=== PATIENT | female | born 1955 | race Caucasian/White ===

== ENCOUNTER → 2016-12-07 | Outpatient (REF) | payer MEDICARE, OTHER ==
[2016-12-07 16:15] LABS: ALBUMIN 4.1 GM/DL (3.2-5.2); ALBUMIN/GLOBULIN RATIO 1.32 (1.00-1.93); ALKALINE PHOSPHATASE 60 U/L (45-117); ALT/SGPT 29 U/L (12-78); ANION GAP 10 MEQ/L (8-16); AST/SGOT 14 U/L (15-37); BILIRUBIN,TOTAL 0.3 MG/DL (0.2-1.0); BLOOD UREA NITROGEN 15 MG/DL (7-18); CALCIUM LEVEL 10.2 MG/DL (8.8-10.2); CARBON DIOXIDE LEVEL 28 MEQ/L (21-32); CHLORIDE LEVEL 105 MEQ/L (98-107); CREATININE FOR GFR 0.76 MG/DL (0.55-1.02); GLOMERULAR FILTRATION RATE > 60.0 (>45); GLUCOSE, FASTING 93 MG/DL (80-110); POTASSIUM SERUM 4.1 MEQ/L (3.5-5.1); SODIUM LEVEL 143 MEQ/L (136-145); TOTAL PROTEIN 7.2 GM/DL (6.4-8.2)
== END ==
LOC: M SFHCPLAZ 13:52
PROVIDERS: ATTEND Nurse Practitioner Family
DX: E11.9 Type 2 diabetes mellitus without complications (principal); E78.4 Other hyperlipidemia; E55.9 Vitamin D deficiency, unspecified
CPT/HCPCS: 36415; 80053; 82306; 83036; G0463

== ENCOUNTER → 2017-06-03 | Outpatient (REF) | payer MEDICARE, OTHER ==
[2017-06-03 14:18] LABS: ALBUMIN/GLOBULIN RATIO 1.33 (1.00-1.93); ALKALINE PHOSPHATASE 59 U/L (45-117); ALT/SGPT 28 U/L (12-78); ANION GAP 8 MEQ/L (8-16); AST/SGOT 15 U/L (15-37); BILIRUBIN,TOTAL 0.3 MG/DL (0.2-1.0); BLOOD UREA NITROGEN 16 MG/DL (7-18); CALCIUM LEVEL 9.8 MG/DL (8.8-10.2); CARBON DIOXIDE LEVEL 25 MEQ/L (21-32); CHLORIDE LEVEL 105 MEQ/L (98-107); CHOLESTEROL LEVEL 142 MG/DL (<200); CREATININE FOR GFR 0.81 MG/DL (0.55-1.02); GLOMERULAR FILTRATION RATE > 60.0 (>45); GLUCOSE, FASTING 164 MG/DL (80-110); POTASSIUM SERUM 4.1 MEQ/L (3.5-5.1); SODIUM LEVEL 138 MEQ/L (136-145); TRIGLYCERIDES LEVEL 176 MG/DL (<150)
== END ==
LOC: M SFHCPLAZ 11:25
PROVIDERS: ATTEND Nurse Practitioner Family
DX: E78.4 Other hyperlipidemia (principal); I10 Essential (primary) hypertension; E11.9 Type 2 diabetes mellitus without complications; E55.9 Vitamin D deficiency, unspecified

== ENCOUNTER → 2017-06-07 | Outpatient (REF) | payer MEDICARE, OTHER | LOC: M SFHCPLAZ 14:09 | PROVIDERS: ATTEND Nurse Practitioner Family | DX: E11.9 Type 2 diabetes mellitus without complications (principal) | CPT/HCPCS: 83036; G0463 ==

== ENCOUNTER → 2017-09-09 | Outpatient (REF) | payer MEDICARE, OTHER | LOC: M SFHCPLAZ 14:21 | PROVIDERS: ATTEND Nurse Practitioner Family | DX: I10 Essential (primary) hypertension (principal); E11.9 Type 2 diabetes mellitus without complications; E55.9 Vitamin D deficiency, unspecified; K43.9 Ventral hernia without obstruction or gangrene; Z53.8 Procedure and treatment not carried out for other reasons ==

== ENCOUNTER → 2018-03-26 | Outpatient (CLI) | payer MEDICARE, OTHER | LOC: M WHC 13:20 | DX: Z12.31 Encounter for screening mammogram for malignant neoplasm of breast (principal); Z92.89 Personal history of other medical treatment | CPT/HCPCS: 77067 ==

== ENCOUNTER → 2018-04-30 | Outpatient (REF) | payer MEDICARE, OTHER ==
[2018-04-30 20:13] LABS: ALBUMIN/GLOBULIN RATIO 1.14 (1.00-1.93); ALKALINE PHOSPHATASE 61 U/L (45-117); ALT/SGPT 35 U/L (12-78); ANION GAP 9 MEQ/L (8-16); AST/SGOT 13 U/L (7-37); BILIRUBIN,TOTAL 0.3 MG/DL (0.2-1.0); BLOOD UREA NITROGEN 12 MG/DL (7-18); CALCIUM LEVEL 9.6 MG/DL (8.8-10.2); CARBON DIOXIDE LEVEL 28 MEQ/L (21-32); CHLORIDE LEVEL 105 MEQ/L (98-107); CREATININE FOR GFR 0.78 MG/DL (0.55-1.30); FERRITIN 160 NG/ML (8-252); GLOMERULAR FILTRATION RATE > 60.0 (>45); GLUCOSE, FASTING 121 MG/DL (70-100); IRON (FE) 60 UG/DL (50-170); MAGNESIUM LEVEL 1.9 MG/DL (1.8-2.4); SODIUM LEVEL 142 MEQ/L (136-145); TOTAL PROTEIN 7.5 GM/DL (6.4-8.2)
[2018-04-30 20:18] LABS: BASO % 0.6 % (0.0-1.0); EOS # 0.4 10^3/uL (0.0-0.50); EOS % 6.2 % (0.0-3.0); HEMATOCRIT 36.5 % (36.0-47.0); HEMOGLOBIN 11.9 g/dl (12.0-15.5); IMMATURE GRANULOCYTE % 0.2 % (0-3.0); LYMPH # 2.1 10^3/uL (1.5-4.5); LYMPH % 33.5 % (24.0-44.0); MEAN CORPUSCULAR HEMOGLOBIN 30.3 pg (27.0-33.0); MEAN CORPUSCULAR HGB CONC 32.6 g/dl (32.0-36.5); MEAN CORPUSCULAR VOLUME 92.9 fl (80.0-96.0); MONO # 0.5 10^3/uL (0.0-0.8); MONO % 8.4 % (0.0-5.0); NEUTROPHILS # 3.2 10^3/uL (1.8-7.7); NEUTROPHILS % 51.1 % (36.0-66.0); PLATELET COUNT, AUTOMATED 238 10^3/uL (150-450); RED BLOOD COUNT 3.93 10^6/uL (4.00-5.40); RED CELL DISTRIBUTION WIDTH 12.6 % (11.5-14.5); WHITE BLOOD COUNT 6.3 10^3/uL (4.0-10.0)
[2018-04-30 21:00] LABS: ESTIMATED AVERAGE GLUCOSE 171 MG/DL (60-110); HEMOGLOBIN A1c 7.6 %
== END ==
LOC: M LAB REF 17:59
DX: R25.2 Cramp and spasm (principal); E11.9 Type 2 diabetes mellitus without complications
CPT/HCPCS: 83540

== ENCOUNTER 2018-11-23 14:39 | Emergency (ER) | payer MEDICARE, OTHER ==
[~2018-11-23] VITALS: Ht 162.6 cm; Wt 86.8 kg
[~2018-11-23 14:39] MED LIST: ANTI2CAP PO; ASPI1TAB PO; FISH1000 PO; GABA-1171 PO; LISI10TA4 PO; METF10004 PO; MULT1TAB10 PO; OXYB5TAB10 PO; SIMV10TA2 PO; TYLE1TAB5 PO; VITA100067 PO; VITA500T PO; VITA500T3 PO; iron PO
[2018-11-23 14:40] VITALS: BP 130/63
[2018-11-23] MEDS ORDERED: GLYB125TA PO (14:47)
[2018-11-23] MEDS ORDERED: ATOR40TA75 PO (14:47)
[2018-11-23] MEDS ORDERED: ULTR50TA8 PO (15:23)
[2018-11-23] MEDS ORDERED: traMADol 50 MG TAB PO ONE (15:30)
[2018-11-23] MEDS ORDERED: ACETAMINOPHEN TAB 650MG DOSE (2X325MG) PO ONE (15:30)
--- NOTE | 2018-11-23 15:30 | REP ---
Left knee five views History: Pain Postoperative change is present. Two metal screws are present in the proximal tibia. There is no acute fracture or dislocation. There is minimal narrowing of the joint spaces. Osteophytes are present on the tibia and patella. IMPRESSION: Degenerative change, as described above. Electronically Signed by Eulalio Jones MD 11/23/2018 03:35 P
== END 2018-11-23 15:44 | disposition home or self-care (01) ==
LOC: M ED 14:39
DX: M17.12 Unilateral primary osteoarthritis, left knee (principal); I10 Essential (primary) hypertension; E11.9 Type 2 diabetes mellitus without complications; I69.354 Hemiplegia and hemiparesis following cerebral infarction affecting left non-dominant side; Z79.899 Other long term (current) drug therapy; Z79.82 Long term (current) use of aspirin

== ENCOUNTER → 2019-03-13 | Outpatient (REF) | payer MEDICARE, OTHER ==
[~2019-03-13] MED LIST changes: -ASPI1TAB PO; +ASPI81TA26 PO; +ATOR40TA75 PO; +GLYB125TA PO; +ULTR50TA8 PO
[2019-03-13 14:45] LABS: CREATININE, URINE 93.4 MG/DL; MAU/CREAT RATIO 10.7 MCG/MG (0.0-30.0)
[2019-03-13 14:49] LABS: ALT/SGPT 40 U/L (12-78); BILIRUBIN,TOTAL 0.4 MG/DL (0.2-1.0); BLOOD UREA NITROGEN 14 MG/DL (7-18); CARBON DIOXIDE LEVEL 24 MEQ/L (21-32); CHLORIDE LEVEL 104 MEQ/L (98-107); CHOLESTEROL LEVEL 150 MG/DL (<200); CHOLESTEROL RISK RATIO 3.488 (<5); CREATININE FOR GFR 0.86 MG/DL (0.55-1.30); GLOMERULAR FILTRATION RATE > 60.0 (>45); GLUCOSE, FASTING 134 MG/DL (70-100); HDL CHOLESTEROL 43 MG/DL (>40); LDL CHOLESTEROL 69 MG/DL (<100); NON-HDL-C 107 MG/DL; POTASSIUM SERUM 4.2 MEQ/L (3.5-5.1); SODIUM LEVEL 138 MEQ/L (136-145); TOTAL PROTEIN 7.5 GM/DL (6.4-8.2); TRIGLYCERIDES LEVEL 188 MG/DL (<150)
[2019-03-13 15:01] LABS: HEMOGLOBIN A1c 7.2 %
== END ==
LOC: M LAB REF 12:48
PROVIDERS: ATTEND Family Medicine Addiction Medicine
DX: E11.9 Type 2 diabetes mellitus without complications (principal)

== ENCOUNTER → 2022-09-04 | Outpatient (REF) | payer MEDICARE, OTHER ==
[~2022-09-04] MED LIST changes: +CYAN500T14 PO; +LISI10TA22 PO; -LISI10TA4 PO; -SIMV10TA2 PO; +SIMV10TA21 PO; +VITA-243 PO; -VITA500T PO; -VITA500T3 PO
[2022-09-04 19:44] LABS: MAU/CREAT RATIO 1348.4 MCG/MG (0.0-30.0)
== END ==
LOC: M LAB REF 16:32
PROVIDERS: ATTEND Nurse Practitioner Family
DX: E11.65 Type 2 diabetes mellitus with hyperglycemia (principal)

== ENCOUNTER → 2022-09-21 | Outpatient (REF) | payer MEDICARE, OTHER ==
[2022-09-21 19:18] LABS: APPEARANCE, URINE MANUAL CLEAR (CLEAR); COLOR, URINE MANUAL YELLOW (YELLOW)
[2022-09-21 19:19] LABS: SPECIFIC GRAVITY,URINE MANUAL 1.025 (1.002-1.035)
[2022-09-21 19:20] LABS: BILIRUBIN, URINE MANUAL NEGATIVE (NEGATIVE); BLOOD URINE MANUAL TRACE (NEGATIVE); GLUCOSE, URINE (UA) MANUAL 4+(1000 MG/DL) mg/dL (NEGATIVE); KETONE, URINE MANUAL NEGATIVE (NEGATIVE); LEUKOCYTE ESTERASE, URINE MAN NEGATIVE (NEGATIVE); NITRITE, URINE MANUAL NEGATIVE (NEGATIVE); PROTEIN, URINE MANUAL 1+ mg/dL (NEGATIVE); UROBILINOGEN, URINE MANUAL NORMAL (NORMAL)
[2022-09-21 20:13] LABS: BACTERIA, URINE SMALL AMOUNT; HYALINE CAST, URINE NONE SEEN /lpf (0-1); MUCUS, URINE MOD AMOUNT (NEGATIVE); RBC, URINE 0-1 /hpf (0-3); SQUAMOUS EPITHELIAL CELL URINE MOD AMOUNT /hpf (SMALL AMT); WBC, URINE 0-1 /hpf (0-3); YEAST, URINE SMALL AMOUNT
== END ==
LOC: M SMT 17:34
PROVIDERS: ATTEND Physician Assistant
DX: N39.45 Continuous leakage (principal)

== ENCOUNTER → 2022-10-02 | Outpatient (REF) | payer MEDICARE, OTHER ==
[2022-10-02 18:20] LABS: BASO % 0.5 % (0.0-1.0); EOS # 0.1 10^3/uL (0.0-0.5); EOS % 1.6 % (0.0-3.0); HEMATOCRIT 40.4 % (36.0-47.0); HEMOGLOBIN 13.1 g/dl (12.0-15.5); LYMPH # 2.1 10^3/uL (1.5-5.0); LYMPH % 36.6 % (24.0-44.0); MEAN CORPUSCULAR HEMOGLOBIN 30.3 pg (27.0-33.0); MEAN CORPUSCULAR HGB CONC 32.4 g/dl (32.0-36.5); MEAN CORPUSCULAR VOLUME 93.3 fl (80.0-96.0); MONO # 0.5 10^3/uL (0.0-0.8); NEUTROPHILS # 2.9 10^3/uL (1.5-8.5); NEUTROPHILS % 51.9 % (36.0-66.0); PLATELET COUNT, AUTOMATED 209 10^3/uL (150-450); RED BLOOD COUNT 4.33 10^6/uL (4.00-5.40); WHITE BLOOD COUNT 5.7 10^3/uL (4.0-10.0)
[2022-10-02 18:56] LABS: HEMOGLOBIN A1c 10.6 % (4.0-6.0)
[2022-10-02 20:19] LABS: ALBUMIN 3.8 G/DL (3.2-5.2); ALT/SGPT 21 U/L (7.0-40); BILIRUBIN,TOTAL 0.3 MG/DL (0.3-1.2); BLOOD UREA NITROGEN 12 MG/DL (9-23); CALCIUM LEVEL 9.2 MG/DL (8.3-10.6); CARBON DIOXIDE LEVEL 26 MMOL/L (20-31); CHLORIDE LEVEL 100 MMOL/L (98-107); CHOLESTEROL LEVEL 274 MG/DL (<200); CHOLESTEROL RISK RATIO 5.81 (<5); CREATININE FOR GFR 0.65 MG/DL (0.55-1.30); FREE T4 1.17 NG/DL (0.89-1.76); GLOMERULAR FILTRATION RATE > 60.0 (>45); GLUCOSE, FASTING 239 MG/DL (74-106); HDL CHOLESTEROL 47.1 MG/DL (>40); LDL CHOLESTEROL 160.5 MG/DL (<100); NON-HDL-C 227 MG/DL; POTASSIUM SERUM 3.9 MMOL/L (3.5-5.1); SODIUM LEVEL 137 MMOL/L (136-145); THYROID STIMULATING HORMONE 3.025 uIU/ML (0.55-4.78); TOTAL PROTEIN 6.7 G/DL; TRIGLYCERIDES LEVEL 332 MG/DL (<150)
== END ==
LOC: M LAB REF 17:29
PROVIDERS: ATTEND Nurse Practitioner Family
DX: Z13.228 Encounter for screening for other metabolic disorders (principal)

== ENCOUNTER → 2023-02-06 | Outpatient (REF) | payer OTHER ==
[2023-02-06 17:20] LABS: HEMOGLOBIN A1c 9.2 % (4.0-6.0)
[2023-02-06 17:44] LABS: CHOLESTEROL RISK RATIO 4.7 (<5); HDL CHOLESTEROL 42.3 MG/DL (>40); LDL CHOLESTEROL 107.5 MG/DL (<100); NON-HDL-C 156.7 MG/DL
== END ==
LOC: M LAB REF 16:23
PROVIDERS: ATTEND Nurse Practitioner Family
DX: E11.65 Type 2 diabetes mellitus with hyperglycemia (principal); E78.5 Hyperlipidemia, unspecified

== ENCOUNTER → 2023-02-12 | Outpatient (REF) | payer OTHER ==
[2023-02-12 17:34] LABS: ALBUMIN 3.7 G/DL (3.2-5.2); ALKALINE PHOSPHATASE 81 U/L (46-116); ALT/SGPT 21 U/L (7.0-40); AST/SGOT 18 U/L (<34); BILIRUBIN,TOTAL 0.3 MG/DL (0.3-1.2); BLOOD UREA NITROGEN 9 MG/DL (9-23); CALCIUM LEVEL 9.8 MG/DL (8.3-10.6); CARBON DIOXIDE LEVEL 27 MMOL/L (20-31); CHLORIDE LEVEL 102 MMOL/L (98-107); CREATININE FOR GFR 0.64 MG/DL (0.55-1.30); GLOMERULAR FILTRATION RATE > 60.0 (>45); GLUCOSE, FASTING 259 MG/DL (74-106); MAGNESIUM LEVEL 1.6 MG/DL (1.8-2.4); POTASSIUM SERUM 4.3 MMOL/L (3.5-5.1); SODIUM LEVEL 137 MMOL/L (136-145); TOTAL PROTEIN 7.1 G/DL (5.7-8.2)
== END ==
LOC: M LAB REF 16:25
PROVIDERS: ATTEND Nurse Practitioner Family
DX: R25.2 Cramp and spasm (principal)

== ENCOUNTER → 2023-05-28 | Outpatient (REF) | payer OTHER ==
[2023-05-28 18:03] LABS: HEMOGLOBIN A1c 10.5 % (4.0-6.0)
[2023-05-28 18:11] LABS: ALBUMIN 3.7 G/DL (3.2-5.2); ALKALINE PHOSPHATASE 94 U/L (46-116); ALT/SGPT 27 U/L (7.0-40); AST/SGOT 19 U/L (<34); BILIRUBIN,TOTAL 0.4 MG/DL (0.3-1.2); BLOOD UREA NITROGEN 11 MG/DL (9-23); CALCIUM LEVEL 10.4 MG/DL (8.3-10.6); CARBON DIOXIDE LEVEL 24 MMOL/L (20-31); CHLORIDE LEVEL 103 MMOL/L (98-107); CREATININE FOR GFR 0.59 MG/DL (0.55-1.30); GLOMERULAR FILTRATION RATE > 60.0 (>45); GLUCOSE, FASTING 391 MG/DL (74-106); POTASSIUM SERUM 4.1 MMOL/L (3.5-5.1); SODIUM LEVEL 135 MMOL/L (136-145); TOTAL PROTEIN 7.1 G/DL (5.7-8.2)
== END ==
LOC: M LAB REF 16:13
PROVIDERS: ATTEND Nurse Practitioner Family
DX: E11.65 Type 2 diabetes mellitus with hyperglycemia (principal)

== ENCOUNTER → 2023-09-18 | Outpatient (REF) | payer OTHER ==
[~2023-09-18] MED LIST changes: -OXYB5TAB10 PO; +OXYB5TAB11 PO
[2023-09-19 13:42] LABS: CREATININE, URINE 53.8 MG/DL
[2023-09-19 13:57] LABS: MAU/CREAT RATIO 1245.3 MCG/MG (0.0-30.0)
== END ==
LOC: M LAB REF 12:33
PROVIDERS: ATTEND Nurse Practitioner Family
DX: E11.9 Type 2 diabetes mellitus without complications (principal)

== ENCOUNTER → 2023-09-27 | Outpatient (REF) | payer OTHER ==
[2023-09-27 16:53] LABS: BASO % 0.4 % (0.0-1.0); EOS # 0.1 10^3/uL (0.0-0.5); EOS % 1.4 % (0.0-3.0); HEMOGLOBIN 12.6 g/dl (12.0-15.5); LYMPH # 1.9 10^3/uL (1.5-5.0); LYMPH % 38.9 % (24.0-44.0); MEAN CORPUSCULAR HGB CONC 33.2 g/dl (32.0-36.5); MEAN CORPUSCULAR VOLUME 90.5 fl (80.0-96.0); MONO # 0.4 10^3/uL (0.0-0.8); MONO % 7.9 % (2.0-8.0); NEUTROPHILS # 2.5 10^3/uL (1.5-8.5); PLATELET COUNT, AUTOMATED 186 10^3/uL (150-450); WHITE BLOOD COUNT 4.9 10^3/uL (4.0-10.0)
[2023-09-27 17:06] LABS: THYROID STIMULATING HORMONE 2.296 uIU/ML (0.55-4.78); TOTAL 25(OH) VITAMIN D 14.9 NG/ML (20.0-100.0)
[2023-09-27 17:10] LABS: ALBUMIN 3.5 G/DL (3.2-5.2); ALKALINE PHOSPHATASE 92 U/L (46-116); ALT/SGPT 23 U/L (7.0-40); AST/SGOT 13 U/L (<34); BILIRUBIN,TOTAL 0.3 MG/DL (0.3-1.2); BLOOD UREA NITROGEN 13 MG/DL (9-23); CALCIUM LEVEL 9.8 MG/DL (8.3-10.6); CARBON DIOXIDE LEVEL 28 MMOL/L (20-31); CHLORIDE LEVEL 100 MMOL/L (98-107); CHOLESTEROL LEVEL 197 MG/DL (<200); CHOLESTEROL RISK RATIO 4.32 (<5); CREATININE FOR GFR 0.65 MG/DL (0.55-1.30); GLOMERULAR FILTRATION RATE > 60.0 (>45); GLUCOSE, FASTING 512 MG/DL (74-106); HDL CHOLESTEROL 45.5 MG/DL (>40); LDL CHOLESTEROL 89.9 MG/DL (<100); NON-HDL-C 151.5 MG/DL; SODIUM LEVEL 136 MMOL/L (136-145); TOTAL PROTEIN 6.7 G/DL (5.7-8.2); TRIGLYCERIDES LEVEL 308 MG/DL (<150)
[2023-09-27 17:33] LABS: MAU/CREAT RATIO 593.5 MCG/MG (0.0-30.0)
[2023-09-27 19:27] LABS: HEMOGLOBIN A1c 13.3 % (4.0-6.0)
== END ==
LOC: M LAB REF 16:10
PROVIDERS: ATTEND Nurse Practitioner Family
DX: Z13.228 Encounter for screening for other metabolic disorders (principal)

== ENCOUNTER → 2024-01-29 | Outpatient (REF) | payer OTHER ==
[~2024-01-29] MED LIST changes: -OXYB5TAB11 PO; +OXYB5TAB14 PO
[2024-01-29 17:39] LABS: APPEARANCE, URINE CLEAR (CLEAR); BACTERIA, URINE AUTO NEGATIVE (NEGATIVE); BILIRUBIN, URINE AUTO NEGATIVE (NEGATIVE); BLOOD, URINE BLOOD NEGATIVE (NEGATIVE); COLOR, URINE STRAW (YELLOW); GLUCOSE, URINE (UA) AUTO 3+ mg/dL (NEGATIVE); KETONE, URINE AUTO NEGATIVE (NEGATIVE); LEUKOCYTE ESTERASE, URINE AUTO NEGATIVE (NEGATIVE); NITRITE, URINE AUTO NEGATIVE (NEGATIVE); PROTEIN, URINE AUTO 2+ mg/dL (NEGATIVE); RBC, URINE AUTO 1 /HPF (0-3); SPECIFIC GRAVITY URINE AUTO 1.031 (1.002-1.035); SQUAMOUS EPITHELIAL CELL UR AU 0 /HPF (0-6); UROBILINOGEN, URINE AUTO 0.2 mg/dL (0.0-2.0); WBC, URINE AUTO 0 /HPF (0-3)
== END ==
LOC: M SMT 17:18
PROVIDERS: ATTEND Urology
DX: R32 Unspecified urinary incontinence (principal)

== ENCOUNTER → 2024-02-04 | Outpatient (REF) | payer OTHER ==
[2024-02-04 18:20] LABS: TOTAL PROTEIN,RANDOM URINE 104.7 MG/DL (0.0-14.0)
[2024-02-04 18:25] LABS: CREATININE,RANDOM URINE 51.2 MG/DL
== END ==
LOC: M LAB REF 17:09
PROVIDERS: ATTEND Internal Medicine Nephrology
DX: E11.22 Type 2 diabetes mellitus with diabetic chronic kidney disease (principal)

== ENCOUNTER 2024-05-26 02:08 | Emergency (ER) | payer OTHER ==
[~2024-05-26] VITALS: Ht 162.6 cm; Wt 87.7 kg
[2024-05-26] MEDS: GLUCAGON INJ 1MG VIAL IV STA ×2 (03:39→04:53)
[2024-05-26] MEDS: NITROGLYCERIN 0.4MG SUBL TABLET SL STA (03:41)
[2024-05-26] MEDS ORDERED: ATOR80TA59 PO (08:56)
[2024-05-26] MEDS ORDERED: METF-839 PO (09:05)
[2024-05-26] MEDS ORDERED: LOSA100T46 PO (09:05)
[2024-05-26] MEDS ORDERED: MYRB50TA PO (09:05)
[2024-05-26] MEDS ORDERED: HOME MED LIST COMPLETE! XX SCH (09:10)
[2024-05-26] MEDS ORDERED: propofoL 200 MG/20 ML VIAL As Ordered ONE (12:00)
[2024-05-26] MEDS ORDERED: LIDOCAINE 2% INJ 100 MG/5 ML SYRINGE As Ordered ONE (12:00)
[2024-05-26] MEDS ORDERED: SUCCINYLCHOLINE 100MG/5ML SYRINGE As Ordered ONE (12:00)
[2024-05-26] MEDS ORDERED: ONDANSETRON 4MG 2ML VIAL As Ordered ONE (12:35)
[2024-05-26] MEDS ORDERED: PHENYLephrine 500MCG 5ML (100MCG/ML) SYRINGE As Ordered ONE (12:49)
[2024-05-26] MEDS: GLUCAGON INJ 1MG VIAL As Ordered ONE (14:06)
[2024-05-26] MEDS: PANTOPRAZOLE 40MG VIAL IV ONE (15:30)
[2024-05-26] MEDS: LABETALOL 100MG/20ML VIAL IV PRN (15:40)
[2024-05-26 15:55] VITALS: BP 180/89
[2024-05-26] MEDS ORDERED: DEXTROSE 50% 50ML SYRINGE IV PRN (16:05)
[2024-05-26] MEDS ORDERED: GLUCAGON INJ 1MG VIAL SC PRN (16:05)
[2024-05-26] MEDS ORDERED: GLUCOSE 4 GM CHEW PO PRN (16:05)
[2024-05-26] MEDS: INSULIN LISPRO (NovoLOG) PER UNIT SC PRN (16:07)
[2024-05-26 16:50] VITALS: BP 144/65; TEMP 98.1; O2SAT 96
== END 2024-05-26 12:46 | disposition home or self-care (01) ==
LOC: EDBD 02:08 → M ED 02:08
DX: T18.128A Food in esophagus causing other injury, initial encounter (principal); E11.9 Type 2 diabetes mellitus without complications; I10 Essential (primary) hypertension; E78.5 Hyperlipidemia, unspecified; Z79.1 Long term (current) use of non-steroidal anti-inflammatories (NSAID); Z79.84 Long term (current) use of oral hypoglycemic drugs; Z79.899 Other long term (current) drug therapy
CPT/HCPCS: 71250; 96372; 96374; 96375; 99285; J0330; J1610; J1815; J1920; J2371; J2405; J2470

== ENCOUNTER → 2024-06-18 | Outpatient (REF) | payer OTHER ==
[~2024-06-18] MED LIST changes: +ATOR80TA59 PO; +LOSA100T46 PO; +METF-839 PO; +MYRB50TA PO
[2024-06-19 13:34] LABS: BASO % 0.8 % (0.0-1.0); EOS # 0.1 10^3/uL (0.0-0.5); EOS % 1.5 % (0.0-3.0); HEMOGLOBIN 12.5 g/dl (12.0-15.5); LYMPH # 1.6 10^3/uL (1.5-5.0); LYMPH % 30.2 % (24.0-44.0); MEAN CORPUSCULAR HGB CONC 32.9 g/dl (32.0-36.5); MEAN CORPUSCULAR VOLUME 91.3 fl (80.0-96.0); MONO # 0.4 10^3/uL (0.0-0.8); MONO % 8.5 % (2.0-8.0); PLATELET COUNT, AUTOMATED 170 10^3/uL (150-450); RED BLOOD COUNT 4.16 10^6/uL (4.00-5.40); WHITE BLOOD COUNT 5.2 10^3/uL (4.0-10.0)
[2024-06-19 14:05] LABS: THYROID STIMULATING HORMONE 2.165 uIU/ML (0.55-4.78)
[2024-06-19 14:09] LABS: HEMOGLOBIN A1c > 14.0 % (4.0-6.0)
[2024-06-19 14:32] LABS: ALBUMIN 3.5 G/DL (3.2-5.2); ALKALINE PHOSPHATASE 109 U/L (46-116); ALT/SGPT 22 U/L (7.0-40); AST/SGOT 10 U/L (<34); BILIRUBIN,TOTAL 0.4 MG/DL (0.3-1.2); BLOOD UREA NITROGEN 19 MG/DL (9-23); CALCIUM LEVEL 9.6 MG/DL (8.3-10.6); CARBON DIOXIDE LEVEL 24 MMOL/L (20-31); CHLORIDE LEVEL 103 MMOL/L (98-107); CHOLESTEROL LEVEL 223 MG/DL (<200); CHOLESTEROL RISK RATIO 5.18 (<5); CREATININE FOR GFR 0.69 MG/DL (0.55-1.30); GLOMERULAR FILTRATION RATE > 60.0 (>45); GLUCOSE, FASTING 488 MG/DL (74-106); LDL CHOLESTEROL 120.8 MG/DL (<100); MAGNESIUM LEVEL 1.6 MG/DL (1.8-2.4); POTASSIUM SERUM 4.8 MMOL/L (3.5-5.1); SODIUM LEVEL 136 MMOL/L (136-145); TOTAL PROTEIN 6.6 G/DL (5.7-8.2); TRIGLYCERIDES LEVEL 296 MG/DL (<150)
[2024-06-19 17:10] LABS: CREATININE, URINE 30.7 MG/DL; MAU/CREAT RATIO 462.5 MCG/MG (0.0-30.0)
== END ==
LOC: M LAB REF 12:35
PROVIDERS: ATTEND Nurse Practitioner Family
DX: E11.9 Type 2 diabetes mellitus without complications (principal); E66.9 Obesity, unspecified

== ENCOUNTER → 2025-03-03 | Outpatient (REF) | payer OTHER ==
[2025-03-03 18:49] LABS: BASO % 0.4 % (0.0-1.0); EOS # 0.1 10^3/uL (0.0-0.5); EOS % 1.4 % (0.0-3.0); HEMATOCRIT 39.9 % (36.0-47.0); HEMOGLOBIN 12.5 g/dl (12.0-15.5); LYMPH # 2.4 10^3/uL (1.5-5.0); LYMPH % 29.5 % (24.0-44.0); MEAN CORPUSCULAR HEMOGLOBIN 29.2 pg (27.0-33.0); MEAN CORPUSCULAR HGB CONC 31.3 g/dl (32.0-36.5); MEAN CORPUSCULAR VOLUME 93.2 fl (80.0-96.0); MONO # 0.6 10^3/uL (0.0-0.8); NEUTROPHILS # 4.8 10^3/uL (1.5-8.5); NEUTROPHILS % 60.2 % (36.0-66.0); PLATELET COUNT, AUTOMATED 297 10^3/uL (150-450); RED BLOOD COUNT 4.28 10^6/uL (4.00-5.40)
[2025-03-03 18:58] LABS: ALBUMIN 3.7 G/DL (3.2-5.2); BILIRUBIN,TOTAL 0.3 MG/DL (0.3-1.2); CALCIUM LEVEL 9.9 MG/DL (8.3-10.6); CHOLESTEROL RISK RATIO 6.1 (<5); CREATININE FOR GFR 0.9 MG/DL (0.55-1.30); GLOMERULAR FILTRATION RATE 68.8 (>39); HDL CHOLESTEROL 41.8 MG/DL (>40); LDL CHOLESTEROL 163.2 MG/DL (<100); NON-HDL-C 213.2 MG/DL; TOTAL PROTEIN 6.9 G/DL (5.7-8.2)
[2025-03-03 19:28] LABS: HEMOGLOBIN A1c 6.1 % (4.0-6.0)
== END ==
LOC: M LAB REF 17:21
PROVIDERS: ATTEND Nurse Practitioner Family
DX: E11.65 Type 2 diabetes mellitus with hyperglycemia (principal); E66.9 Obesity, unspecified

== ENCOUNTER → 2025-03-18 | Outpatient (REF) | payer OTHER ==
[2025-03-18 17:54] LABS: TOTAL PROTEIN,RANDOM URINE 72.3 MG/DL (0.0-14.0)
[2025-03-18 17:59] LABS: CREATININE,RANDOM URINE 127.5 MG/DL
== END ==
LOC: M LAB REF 16:49
PROVIDERS: ATTEND Nurse Practitioner Family
DX: E11.22 Type 2 diabetes mellitus with diabetic chronic kidney disease (principal); N18.2 Chronic kidney disease, stage 2 (mild)

== ENCOUNTER → 2025-06-09 | Outpatient (REF) | payer OTHER ==
[~2025-06-09] MED LIST changes: +BASA100I SC
[2025-06-09 17:38] LABS: ALT/SGPT 24 U/L (7.0-40); AST/SGOT 19 U/L (<34); CALCIUM LEVEL 9.7 MG/DL (8.3-10.6); CARBON DIOXIDE LEVEL 24 MMOL/L (20-31); CHLORIDE LEVEL 105 MMOL/L (98-107); CHOLESTEROL LEVEL 152 MG/DL (<200); CHOLESTEROL RISK RATIO 3.58 (<5); CREATININE FOR GFR 0.71 MG/DL (0.55-1.30); GLOMERULAR FILTRATION RATE > 90.0 (>39); LDL CHOLESTEROL 84.0 MG/DL (<100); NON-HDL-C 109.6 MG/DL; POTASSIUM SERUM 4.1 MMOL/L (3.5-5.1); SODIUM LEVEL 143 MMOL/L (136-145); TRIGLYCERIDES LEVEL 128 MG/DL (<150)
[2025-06-09 17:46] LABS: ESTIMATED AVERAGE GLUCOSE 128.0 MG/DL (60-110)
== END ==
LOC: M LAB REF 16:33
PROVIDERS: ATTEND Nurse Practitioner Family
DX: E11.65 Type 2 diabetes mellitus with hyperglycemia (principal); E78.5 Hyperlipidemia, unspecified

== ENCOUNTER 2025-10-09 17:16 | Emergency (ER) | payer MEDICARE, OTHER ==
[2025-10-09] MEDS: MORPHINE 4 MG/ML 1 ML VIAL IV ONE (19:18)
[2025-10-09 19:22] LABS: BASO # 0.0 10^3/uL (0.0-0.2); BASO % 0.3 % (0.0-1.0); EOS # 0.1 10^3/uL (0.0-0.5); EOS % 1.0 % (0.0-3.0); LYMPH # 2.2 10^3/uL (1.5-5.0); LYMPH % 25.8 % (24.0-44.0); MONO # 0.7 10^3/uL (0.0-0.8); MONO % 8.3 % (2.0-8.0); NEUTROPHILS # 5.5 10^3/uL (1.5-8.5); NEUTROPHILS % 64.1 % (36.0-66.0); PLATELET COUNT, AUTOMATED 246 10^3/uL (150-450)
[2025-10-09 19:45] LABS: INR 0.84
[2025-10-09 19:55] LABS: ALT/SGPT 23 U/L (7.0-40); AST/SGOT 21 U/L (<34); CALCIUM LEVEL 9.6 MG/DL (8.3-10.6); CARBON DIOXIDE LEVEL 25 MMOL/L (20-31); CHLORIDE LEVEL 103 MMOL/L (98-107); CK-MB VALUE MASS 1.2 NG/ML (<3.6); CREATININE FOR GFR 0.69 MG/DL (0.55-1.30); GLOMERULAR FILTRATION RATE > 90.0 (>39); POTASSIUM SERUM 4.2 MMOL/L (3.5-5.1); SODIUM LEVEL 140 MMOL/L (136-145)
[2025-10-09 19:57] LABS: FREE T4 1.07 NG/DL (0.89-1.76)
[2025-10-09 19:58] LABS: CPK CREATINE PHOSPHOKINASE 136 U/L (34-145); MB/CK RELATIVE INDEX 0.88 (< OR =4)
[2025-10-09 22:16] VITALS: BP 160/72; TEMP 98.5; O2SAT 92
== END 2025-10-09 23:05 | disposition home or self-care (01) ==
LOC: M ED 17:16
DX: M25.551 Pain in right hip (principal); S93.402A Sprain of unspecified ligament of left ankle, initial encounter; Y92.9 Unspecified place or not applicable; Y93.9 Activity, unspecified; Y99.9 Unspecified external cause status; W01.0XXA Fall on same level from slipping, tripping and stumbling without subsequent striking against object, initial encounter; R94.31 Abnormal electrocardiogram [ECG] [EKG]; E11.9 Type 2 diabetes mellitus without complications; I10 Essential (primary) hypertension; E78.5 Hyperlipidemia, unspecified; I69.354 Hemiplegia and hemiparesis following cerebral infarction affecting left non-dominant side; Z87.891 Personal history of nicotine dependence; Z79.1 Long term (current) use of non-steroidal anti-inflammatories (NSAID); Z79.4 Long term (current) use of insulin; Z79.84 Long term (current) use of oral hypoglycemic drugs; Z79.899 Other long term (current) drug therapy

== ENCOUNTER → 2025-11-04 | Outpatient (CLI) | payer MEDICARE, OTHER | LOC: M SOG 07:58 | PROVIDERS: ATTEND Physician Assistant | DX: Z53.9 Procedure and treatment not carried out, unspecified reason (principal) ==